=== PATIENT | female | born 1955 | race Two or more races ===

== ENCOUNTER → 2024-05-27 | Outpatient (CLI) | payer MEDICARE, SELFPAY ==
--- NOTE | 2024-05-27 13:40 | XR_ITS ---
Examination: Bone densitometry Date and time of exam:May 27, 2024 1347 hours INDICATIONS: Menopause age 54 Technique: Lumbar spine and hip total bone mineralization values of an calculated. Peak reference and age match control results have been displayed. Findings: Lumbar spine total bone mineralization is0.899 gm/cm2. This is 1.3 standard deviations below peak reference. This is 0.6 standard deviations above age-matched controls. Hip total bone mineralization is 0.878 gm/cm2 This is 0.6 standard deviations below peak reference. This is 0.6 standard deviations above age-matched controls Impression: There is osteopenia based on lumbar spine measurements. There is osteopenia based on hip measurements
== END | disposition home or self-care (01) ==
PROVIDERS: PCP Registered Nurse; Referring Provider Registered Nurse; Visit Provider Registered Nurse
DX: Z13.820 Encounter for screening for osteoporosis (principal); M85.89 Other specified disorders of bone density and structure, multiple sites
CPT/HCPCS: 77080

== ENCOUNTER → 2024-09-29 | Outpatient (CLI) | payer MEDICARE, MEDICAID, SELFPAY ==
--- NOTE | 2024-09-29 12:45 | XR_ITS ---
Examination: Breast ultrasound, unilateral, left complete Date and time of exam: September 29, 2024 1158 hours INDICATIONS: Mammogram March 28, 2024 focal asymmetry 2:00 position left breast 4 mm Technique: Real-time king scale ultrasonographic imaging performed left breast including all 4 quadrants as well as nipple retroareolar and axillary region. Findings: 2:00 oval mass lobular margins 4 x 4 millimeter IMPRESSION: BI-RADS Category 2: Benign findings
--- NOTE | 2024-09-29 13:15 | XR_ITS ---
Examination: Diagnostic digital mammography, unilateral, left Computer aided detection 3-D breast Tomosynthesis, unilateral Date and time of exam: September 29, 2024 1153 hours Compared to mammograms dating to August 07, 2014 INDICATIONS: Outside mammogram January 05, 2024 11 mm focal asymmetry MLO view upper left breast Technique: Nonmagnified MLO, CC views of the left breast have been obtained, reconstructed from 3-D Tomosynthesis images. R2 computer aided detection program utilized for evaluation of suspicious masses and/or abnormal calcifications. 3-D Tomosynthesis images obtained. Findings: Scattered areas of fibroglandular density No interval suspicious masses Impression: BI-RADS category 0: Incomplete: Need additional imaging evaluation Repeat left breast sonography is needed to document stability of 2:00 nodule left breast described on left breast sonogram March 28, 2024
== END | disposition home or self-care (01) ==
PROVIDERS: PCP Registered Nurse; Referring Provider Registered Nurse; Visit Provider Registered Nurse
DX: N63.21 Unspecified lump in the left breast, upper outer quadrant (principal); N64.89 Other specified disorders of breast
CPT/HCPCS: 76641; 77061; 77065; G0279